=== PATIENT | female | born 1960 | race Caucasian/White ===

== ENCOUNTER 2021-02-12 17:20 | Emergency (ER) | payer OTHER ==
[2021-02-12 17:55] VITALS: BP 125/69; PULSE 72; TEMP 98.8; BMI 26.6
[2021-02-12 19:34] LABS: ALBUMIN 3.7 g/dl (3.4-5.0); BILIRUBIN,TOTAL 0.5 mg/dl (0.2-1); CALCIUM 8.8 mg/dl (8.5-10); CREATININE 0.6 mg/dl (0.55-1.3); TOT PROT 6.4 g/dl (6.4-8.2)
[2021-02-12 20:24] LABS: EOS % 1.5 % (0-4.5); HEMATOCRIT 30.6 % (32.4-45.2); LYMPH % 20.4 % (8-40); MCHC 32.9 g/dl (32.0-36.0); MEAN CELL VOLUME 79.1 fl (80-96); MEAN PLT VOLUME 9.3 fl (7.5-11.1); MONO % 9.6 % (3.8-10.2); NEUT % 67.5 % (42.8-82.8); PLATELET COUNT 311 10^3/uL (134-434); RBC 3.86 M/mm3 (3.60-5.2); WHITE BLOOD COUNT 9.6 K/mm3 (4.0-10.0)
[2021-02-12] MEDS ORDERED: SULFAMETHOXAZOLE/TRIMETHOPRIM 800MG/160MG D.S. TABLET PO ONE (20:38)
[2021-02-12 20:42] LABS: N-TERMINAL BNP 170.6 pg/ml (5-125)
[2021-02-12] MEDS ORDERED: SULFAMETHOXAZOLE/TRIMETHOPRIM 800MG/160MG D.S. TABLET ONE (21:04)
[2021-02-12] MEDS ORDERED: ACETAMINOPHEN 500 MG TABLET (FP) ONE (22:20)
[2021-02-12] MEDS ORDERED: ACETAMINOPHEN 500 MG TABLET (FP) PO ONE (22:20)
== END 2021-02-12 21:38 | disposition home or self-care (01) ==
LOC: FER 17:20
DX: M79.604 Pain in right leg (principal)
CPT/HCPCS: 36415; 71045-TC-FY; 80053; 82550; 82553; 83735; 83880; 84484; 85025; 93005; 93970-TC; 99285-25